=== PATIENT | male | born 1950 | race Caucasian/White ===

== ENCOUNTER 2018-07-06 11:50 | Inpatient (IN) | payer MEDICARE, OTHER ==
[2018-07-06] MEDS ORDERED: Pantoprazole 40 MG VIAL ONE (12:32)
[2018-07-06 12:42] LABS: #Basophils 0.1 thou/uL (0.0-0.2); #Eosinphils 0.2 thou/uL (0.0-0.7); #Lymphocytes 2.1 thou/uL (1.20-3.40); #Monocytes 0.4 thou/uL (0.11-0.59); %Basophils 0.9 % (0.0-1.0); %Lymphocytes 31.5 % (21.0-51.0); %Monocytes 5.8 % (0.0-10.0); %Neutrophils 58.8 % (42.0-75.0); Hemoglobin 13.4 g/dL (14.0-18.0); Mean Corpuscular HGB CONC 33.3 g/dL (32.0-36.0); Mean Corpuscular Hemoglobin 31.8 pg (27.0-31.0); Mean Corpuscular Volume 95.5 fL (78.0-98.0); Platelet Count 215 thou/uL (130-400); RBC Distribution Width 14.9 % (11.5-14.5); Red Blood Cell (RBC) Count 4.21 mill/uL (4.70-6.10); White Blood Cell (WBC) Count 6.8 thou/uL (4.8-10.8)
[2018-07-06 13:09] LABS: ALT (SGPT) 19 U/L (8-55); AST (SGOT) 18 U/L (5-34); Albumin 4.5 g/dL (3.4-4.8); Alkaline Phosphatase 69 U/L (40-150); Anion Gap 14 mmol/L (10-20); BUN (Urea Nitrogen) 17 mg/dL (8.4-25.7); Bilirubin, Total 1.1 mg/dL (0.2-1.2); Calc. Creatinine Clearance 0 mL/min (70-130); Calcium 9.7 mg/dL (7.8-10.44); Carbon Dioxide 27 mmol/L (23-31); Chloride 106 mmol/L (98-107); Estimated GFR-MDRD 83; Globulin 2.9 g/dL (2.4-3.5); Glucose 108 mg/dL (80-115); Potassium 3.6 mmol/L (3.5-5.1); Protein, Total 7.4 g/dL (5.8-8.1); Sodium 143 mmol/L (136-145)
[2018-07-06] MEDS ORDERED: Ondansetron PF 4 MG/2 ML Vial IVP PRN (13:59)
[2018-07-06] MEDS ORDERED: Sodium Chloride 0.9% (PF) 10 ML VIAL FS PRN (14:31)
--- NOTE | 2018-07-06 15:47 | CT ---
FCT abdomen noncontrast CT pelvis noncontrast: 07/06/2018 HISTORY: 67-year-old male with right lower quadrant abdominal pain. Bloody stools. COMPARISON: None FINDINGS: Appendix, pancreas, spleen, adrenals, and liver, are normal, within the limitations of a noncontrast scan. Multiple small and tiny bilateral renal calculi. No hydronephrosis. No ureteral calculus or marga dder calculus. Normal, thin isaacs of the urinary bladder. At the proximal sigmoid colon, one of the d iverticula has thickened, enhancing isaacs. Adjacent to that, there is prominent pericolonic fat stran ding representing edema in the adjacent mesentery. No definite extraluminal gas or abscess is identif ied. No small bowel dilation. Cholecystectomy clips. No abdominal aortic aneurysm. IMPRESSION: 1. Acute proximal sigmoid colonic diverticulitis at the left lower quadrant. 2. Bilateral nephrolithiasis.
[2018-07-06 15:49] VITALS: BMI 26.2
[2018-07-06] MEDS: metroNIDAZOLE 500 MG in Premix Bag 1 BAG IVPB SCH (18:22)
[2018-07-06] MEDS: Pantoprazole 40 MG VIAL IVP SCH (22:21)
--- NOTE | 2018-07-06 23:58 | CON ---
DATE OF CONSULTATION: 07/06/2018 REQUESTING PHYSICIAN: Genevieve Jimenez MD. REASON FOR CONSULTATION: Hematochezia. HISTORY OF PRESENT ILLNESS: Laz Denise is a 67-year-old gentleman, who was transferred here from the [facility] with hematochezia today. He has a history of atrial fibrillation status post ablation and Lariat procedure, so he is only on aspirin. No other anticoagulation. He had prostate cancer surgery in the past and also remote history of hemorrhagic stroke. He has hereditary hemochromatosis and gets therapeutic phlebotomy every couple of weeks under the direction of Dr. Moreno at [facility]. He has no known history of liver disease. No known history of gastrointestinal illness. No prior colonoscopy. Yesterday morning, he had a bowel movement and this was notable for being very dark with some bright red blood accompanying it. This happened another four times throughout the course of yesterday and yesterday evening, one of his stools was essentially mostly red liquid blood. His last bowel movement was this morning and again this was quite dark with a bit of red blood in the stool as well. For the past couple of months, he has been having some increased bowel sounds and just over the past few days he has been having some discomfort localized to the left side of the abdomen, particularly the left lower quadrant. No severe abdominal pain. No nausea or vomiting. His appetite is okay. He has had no fever. No dizziness. Upon presentation, hemoglobin is 13.4. He had a CT of the abdomen and pelvis in the ER prior to going up to the floor and this demonstrates an acute proximal sigmoid diverticulitis with mesenteric stranding. He has no known prior history of diverticulitis. He is hemodynamically stable, otherwise feeling pretty well. REVIEW OF SYSTEMS: Full review of systems including constitutional, head, eyes, ears, nose, throat, GI, , cardiovascular, respiratory, musculoskeletal, neurologic systems is negative except as noted in the HPI. PAST MEDICAL HISTORY: Hereditary hemochromatosis, atrial fibrillation status post ablation procedure and Lariat procedure, hypertension, prostate cancer, prostate cancer surgery, hemorrhagic CVA in 2011, sleep apnea, cholecystectomy, depression. ALLERGIES: NO KNOWN DRUG ALLERGIES. OUTPATIENT MEDICATIONS: 1. Aspirin 81 mg daily. 2. Metoprolol. 3. Amlodipine. 4. Allopurinol. 5. Clonidine. 6. Benazepril. 7. Lasix. 8. Potassium chloride. FAMILY HISTORY: Negative for known gastrointestinal malignancy. SOCIAL HISTORY: No alcohol abuse. PHYSICAL EXAMINATION: VITAL SIGNS: Temperature 98.3, pulse 57, blood pressure 157/93, 97% oxygen saturation on room air. GENERAL: Well-appearing 67-year-old man, sitting up in bed comfortably, in no distress. SKIN: No jaundice. No rashes were palpable. EYES: No scleral icterus. Extraocular movements intact. ENT: Mucous membranes moist. No oral lesions. LYMPH: No submandibular or supraclavicular lymphadenopathy. Thyroid nontender to palpation. HEART: Regular rate and rhythm. LUNGS: Clear to auscultation bilaterally. ABDOMEN: Bowel sounds are present. Nondistended. The abdomen is soft. There is some tenderness to palpation in the left lower quadrant and a little bit in the left upper quadrant as well, but no guarding or rebound tenderness. EXTREMITIES: No peripheral edema. VESSELS: Radial pulses 2+ bilaterally. NEURO: Cranial nerves 2-12 intact bilaterally. No focal deficits. LABORATORY STUDIES: Sodium 143, potassium 3.6, BUN 17, creatinine 0.91. LFTs all normal with total bilirubin 1.1, AST 18, ALT 19, alkaline phosphatase 69, albumin 4.5. Hemoglobin is 13.4, WBC 6.8, platelets 215. IMAGING STUDIES: CT of the abdomen and pelvis demonstrates acute proximal sigmoid diverticulitis with associated mesenteric stranding. There is some bilateral nonobstructing nephrolithiasis. The CT scan is otherwise unremarkable. ASSESSMENT: 1. Acute sigmoid diverticulitis. 2. Hematochezia, secondary to acute sigmoid diverticulitis. PLAN: I discussed with the patient that the CT findings demonstrate acute sigmoid diverticulitis which is uncomplicated. His hematochezia is almost certainly secondary to this acute process. Notably, his hemoglobin is satisfactory at 13.4. I have gone ahead and started him on ciprofloxacin and Flagyl IV. Continue IV antibiotics while inpatient and transition to oral upon hospital discharge to complete a 10 day course. We will not plan on any colonoscopy in the setting of acute diverticulitis. He is going to need a followup colonoscopy at a 6-8 week interval to follow up this episode. We will have him on a full liquid diet tonight. Anticipate if he is doing well tomorrow, the diet can be further advanced. Trend H and H tomorrow as well. Thank you for the consultation. Please call anytime with questions or concerns. Job ID: [id number]
--- NOTE | 2018-07-07 00:30 | HP ---
CHIEF COMPLAINT: Dark stools. HISTORY OF PRESENT ILLNESS: The patient is a 67-year-old male with a history of AFib, status post Lariat procedure, is currently just on aspirin, who presents to the hospital with complaints of hematochezia and melena. The patient stated that he had, I believe on Sunday, one episode of dark black stool followed by bright blood when he tried to clean himself. At this time, the patient had a normal follow up with his office support associate and the office support associate recommended him to come into the ER if his dark stools or bright blood per rectum continued. The patient, at this time, from yesterday and today, had about 3 to 4 bouts of stools, which were dark in nature, followed by some bright blood when he tried to clean himself. The patient denied any fevers or chills, or any nausea or vomiting. The patient did complain of some pain to his left lower quadrant. PAST MEDICAL HISTORY: 1. History of atrial fibrillation. He had Lariat procedure. 2. Hemochromatosis. 3. Arrhythmias. 4. Hypertension. 5. Also, he has had a history of prostate cancer, status post prostatectomy. 6. The patient also has a history of hemochromatosis and he normally gets phlebotomy. PAST SURGICAL HISTORY: Prostatectomy. He also had the Lariat procedure. SOCIAL HISTORY: He denies any alcohol use or drug use. He is a full code. Lives with his . FAMILY HISTORY: Family history of some heart disease. ALLERGIES: NO KNOWN DRUG ALLERGIES. MEDICATIONS: 1. Aspirin 81 mg daily. 2. Metoprolol 25 mg daily b.i.d. 3. Allopurinol 100 mg daily. 4. Amlodipine 5 mg daily. 5. Benazepril 40 mg daily. 6. Clonidine 0.2 mg daily. 7. Lasix 20 mg daily. 8. Potassium 10 mEq daily. PHYSICAL EXAMINATION: VITAL SIGNS: Temperature of 98.5, respirations 15, pulse of 55, 165/93, 98% on room air. GENERAL: The patient is awake, alert, and oriented x3. Does not appear in distress. CV: S1, S2 present. No murmurs, rubs, or gallops. HEENT: Normocephalic, atraumatic. No lymphadenopathy noted. Pupils are equal and reactive to light. LUNGS: Clear to auscultation. No rhonchi or wheezes noted. ABDOMEN: Soft. He has tenderness on his left lower quadrant on some mild to deep palpation. EXTREMITY: No edema. Pedal pulses are present x2. NEUROVASCULAR: No focal deficits noted. SKIN: No cuts, lesions, or bruises noted. LABORATORY RESULTS: As of the following; 13.4, hematocrit of 40.3, platelets of 215. Chemistry; sodium of 143, potassium of 3.6, BUN of 17, creatinine 0.91. AST 18, ALT 19. ASSESSMENT AND PLAN: The patient is a very pleasant 67-year-old male, who presents to the hospital with complaints of dark stools and also followed by hematochezia. 1. Lower gastrointestinal bleed. The patient has a combination of both hematochezia and melena. However, given the fact that he has left lower quadrant pain, I will go ahead and do a CT abdomen and pelvis to rule out any diverticulitis or diverticulosis. The patient has never had a colonoscopy. I also would consult Gastroenterology, check his H and H every 6 hours, put the patient n.p.o. for now until he is evaluated by Gastroenterology. 2. History of atrial fibrillation, currently on aspirin. He is status post Lariat procedure. He does not require any anticoagulation. We will continue to monitor. 3. History of hypertension. We will hold off on his blood pressure medications for now given his bleeding status. We will also type and screen him just in case if we need to transfuse this patient. Job ID: [id number]
[2018-07-07] MEDS: metroNIDAZOLE 500 MG in Premix Bag 1 BAG IVPB SCH ×3 (01:28→19:01)
[2018-07-07] MEDS ORDERED: Acetaminophen 325 MG TAB PO PRN (01:57)
[2018-07-07 06:04] LABS: #Eosinphils 0.2 thou/uL (0.0-0.7); #Lymphocytes 1.8 thou/uL (1.20-3.40); #Monocytes 0.5 thou/uL (0.11-0.59); #Neutrophils 4.1 thou/uL (1.40-6.50); %Basophils 0.3 % (0.0-1.0); %Eosinophils 2.9 % (0.0-10.0); %Lymphocytes 27.1 % (21.0-51.0); %Monocytes 7.6 % (0.0-10.0); %Neutrophils 62.2 % (42.0-75.0); Hemoglobin 11.3 g/dL (14.0-18.0); Mean Corpuscular HGB CONC 33.1 g/dL (32.0-36.0); Mean Corpuscular Hemoglobin 31.2 pg (27.0-31.0); Mean Corpuscular Volume 94.2 fL (78.0-98.0); Mean Platelet Volume 7.1 fL (7.4-10.4); Platelet Count 200 thou/uL (130-400); RBC Distribution Width 14.7 % (11.5-14.5); Red Blood Cell (RBC) Count 3.64 mill/uL (4.70-6.10); White Blood Cell (WBC) Count 6.5 thou/uL (4.8-10.8)
[2018-07-07 06:22] LABS: Anion Gap 12 mmol/L (10-20); BUN (Urea Nitrogen) 15 mg/dL (8.4-25.7); Calc. Creatinine Clearance 112 mL/min (70-130); Calcium 9.2 mg/dL (7.8-10.44); Carbon Dioxide 26 mmol/L (23-31); Chloride 108 mmol/L (98-107); Estimated GFR-MDRD 88; Glucose 94 mg/dL (80-115); Potassium 3.8 mmol/L (3.5-5.1); Sodium 142 mmol/L (136-145)
[2018-07-07] MEDS: Pantoprazole 40 MG VIAL IVP SCH ×2 (10:40→23:01)
--- NOTE | 2018-07-07 13:12 | PDOC.PN ---
- Subjective Encounter Start Date: 07/07/18 Encounter Start Time: 13:10 Subjective: admitted with abdominal cramps associated with melena and hematochezia. -: Started on antibiotic for acute diverticulitis. Feeling better. No fever. -: bloody stool is subsiding - Objective Resuscitation Status - Order Detail: 07/06/18 13:59 Resuscitation Status Routine Resuscitation Status: FULL: Full Resuscitation Vital Signs & Weight: Vital Signs (12 hours) Temp Pulse Resp BP Pulse Ox 07/07/18 11:42 98.1 F 71 20 112/77 95 07/07/18 07:55 98.4 F 62 20 111/79 97 07/07/18 04:00 98.6 F 50 L 18 144/89 H 98 Weight Weight 215 lb 4.8 oz I&O: 07/06/18 07/07/18 07/08/18 06:59 06:59 06:59 Intake Total 1050 Balance 1050 Result Diagrams: 07/07/18 05:16 07/07/18 05:16 Phys Exam - Physical Examination Constitutional: NAD HEENT: PERRLA, moist MMs Neck: no JVD, supple Respiratory: no wheezing, no rhonchi, clear to auscultation bilateral Cardiovascular: RRR Gastrointestinal: soft, no distention, positive bowel sounds left lower quadrant tenderness Musculoskeletal: no edema Neurological: non-focal, moves all 4 limbs Psychiatric: A&O x 3 Dx/Plan (1) Acute blood loss anemia Code(s): D62 - ACUTE POSTHEMORRHAGIC ANEMIA Status: Acute (2) Acute lower GI bleeding Code(s): K92.2 - GASTROINTESTINAL HEMORRHAGE, UNSPECIFIED Status: Acute (3) Acute diverticulitis Code(s): K57.92 - DVTRCLI OF INTEST, PART UNSP, W/O PERF OR ABSCESS W/O BLEED Status: Acute (4) Atrial fibrillation Code(s): I48.91 - UNSPECIFIED ATRIAL FIBRILLATION Status: Acute (5) Hemochromatosis Code(s): E83.119 - HEMOCHROMATOSIS, UNSPECIFIED Status: Acute (6) History of prostate cancer Code(s): Z85.46 - PERSONAL HISTORY OF MALIGNANT NEOPLASM OF PROSTATE Status: Acute (7) Bilateral nephrolithiasis Code(s): N20.0 - CALCULUS OF KIDNEY Status: Acute - Plan Continue IV antibiotics -: monitor H/H. -: Advance diet -: Restart metoprol while holding other antihypertensives. * .
--- NOTE | 2018-07-07 14:28 | PRG ---
DATE OF SERVICE: 07/07/2018 SUBJECTIVE: Mr. Denise is feeling pretty well today. He passed another bloody bowel movement about 7 a.m., but has had no bowel movement since that time. Abdominal discomfort has essentially resolved and he is feeling energetic. Hemoglobin did drop a couple of points overnight down to 11.3. He has remained hemodynamically stable, tolerating his diet. OBJECTIVE: VITAL SIGNS: Temperature 98.1, pulse 71, blood pressure 112/77, and 95% oxygen saturation on room air. GENERAL: No acute distress. HEART: Regular rate and rhythm. LUNGS: Clear to auscultation bilaterally. ABDOMEN: Bowel sounds present. Soft and nontender to palpation. EXTREMITIES: No peripheral edema. LABORATORY STUDIES: Hemoglobin declined down to 11.3, WBC 6.5, platelets 200. Sodium 142, potassium 3.8, BUN 15, creatinine 0.86. ASSESSMENT AND PLAN: 1. Acute sigmoid diverticulitis with hemorrhage. 2. Hematochezia, appears secondary to acute sigmoid diverticulitis. 3. Acute blood loss anemia. Mr. Denise's blood count has dropped a couple of points, as expected. It is unclear whether the active hemorrhage is really resolving or not. Continue with close observation. Monitor H and H tomorrow. Continue antibiotics. Still recommend against proceeding with any colonoscopy in the acute setting of sigmoid diverticulitis, but we will plan on this at a 6 to 8-week interval following resolution of this episode. GI can continue to follow along. Continue with his diet. Job ID: [id number]
[2018-07-07] MEDS ORDERED: metroNIDAZOLE 500 MG TAB PO SCH (22:15)
[2018-07-08] MEDS ORDERED: Cipro 250 MG TAB PO SCH (06:00)
[2018-07-08 06:01] LABS: #Basophils 0.1 thou/uL (0.0-0.2); #Eosinphils 0.2 thou/uL (0.0-0.7); #Lymphocytes 1.7 thou/uL (1.20-3.40); #Monocytes 0.7 thou/uL (0.11-0.59); #Neutrophils 5.6 thou/uL (1.40-6.50); %Basophils 0.9 % (0.0-1.0); %Eosinophils 2.4 % (0.0-10.0); %Lymphocytes 20.7 % (21.0-51.0); %Monocytes 8.5 % (0.0-10.0); %Neutrophils 67.4 % (42.0-75.0); Hemoglobin 10.8 g/dL (14.0-18.0); Mean Corpuscular Hemoglobin 31.2 pg (27.0-31.0); Mean Corpuscular Volume 94.5 fL (78.0-98.0); Mean Platelet Volume 6.9 fL (7.4-10.4); Platelet Count 198 thou/uL (130-400); RBC Distribution Width 14.6 % (11.5-14.5); Red Blood Cell (RBC) Count 3.46 mill/uL (4.70-6.10); White Blood Cell (WBC) Count 8.3 thou/uL (4.8-10.8)
--- NOTE | 2018-07-08 08:25 | PRG ---
DATE OF SERVICE: 07/08/2018 SUBJECTIVE: Mr. Denise is feeling well this morning. His last bowel movement was 3 p.m. yesterday afternoon and says this was clearing up with only a small tinge of blood. He has no abdominal pain. His hemoglobin has stabilized currently at 10.8 this morning. OBJECTIVE: VITAL SIGNS: Temperature 98.2, pulse 52, blood pressure 125/87, and 98% oxygen saturation on room air. GENERAL: No acute distress. HEART: Regular rate and rhythm. LUNGS: Clear to auscultation bilaterally. ABDOMEN: Soft, nontender to palpation. EXTREMITIES: No peripheral edema. LABORATORY STUDIES: Hemoglobin 10.8, WBC 8.3, platelets 198. Sodium 142, potassium 3.8, BUN 15, creatinine 0.86. ASSESSMENT: 1. Acute sigmoid diverticulitis with hemorrhage, clinically improved. 2. Acute blood loss anemia, stabilized. It appears that the patient's bleeding has resolved. He is otherwise minimally symptomatic with his diverticulitis. From a GI standpoint, I think he could be discharged from the hospital on oral antibiotics to complete a 10 day course. PLAN: We will plan to see him back in my clinic in 3 to 4 weeks for followup. At that point, we will be likely scheduling a followup colonoscopy as well. GI will sign off, but please call anytime with questions or concerns. Job ID: [id number]
[2018-07-08] MEDS ORDERED: metroNIDAZOLE 500 MG TAB PO SCH (09:00)
[2018-07-08] MEDS ORDERED: Pantoprazole 40 MG GRANULES PACKET PO SCH (09:00)
--- NOTE | 2018-07-08 10:02 | DIS ---
DATE OF ADMISSION: 07/06/2018 DATE OF DISCHARGE: 07/08/2018 DISCHARGE DIAGNOSES: 1. Acute lower gastrointestinal bleeding. 2. Acute blood loss anemia. 3. Acute sigmoid diverticulitis. 4. Paroxysmal atrial fibrillation. 5. Hemochromatosis. 6. Bilateral nephrolithiasis. 7. Hypertension. CONSULTS: Gastroenterology. HOSPITAL COURSE: A 67-year-old male with past medical history significant for hemochromatosis requiring phlebotomy every 2 weeks; prior CVA, on aspirin, who presented with abdominal cramps associated with melena and bloody stool as well as generalized weakness and ill feeling. CT scan showed sigmoid diverticulitis. The patient was started on IV fluid and antibiotics with improvement in symptoms. Diet was restarted, and this was well tolerated and advanced to regular. GI saw the patient and recommended interval colonoscopy when acute inflammation has subsided. Of note, the patient had soft blood pressure necessitating discontinuation of all antihypertensives. BP improved, and the patient was restarted on some of his usual antihypertensives while most of them were held at discharge. The patient also was found to have nephrolithiasis on CT scan. This was said to be multiple in both kidneys. The patient was advised to follow up with a cocoa press operator for further evaluation and treatment. PHYSICAL EXAMINATION: VITAL SIGNS: Temperature 98.3, pulse 55, respiratory rate 16, SpO2 of 96% on room air, blood pressure 146/84. GENERAL: Healthy-looking male, in no obvious distress. Afebrile. Anicteric. Acyanotic. HEENT: Normocephalic and atraumatic. Pupils are equal and reacting to light. CARDIOVASCULAR: Regular rhythm and rate with normal heart sounds 1 and 2. RESPIRATORY: Good air entry bilaterally with no obvious crackle or rhonchi. GI: Abdomen is full, soft with mild left lower quadrant tenderness. EXTREMITIES: Grossly normal looking, atraumatic with no edema or erythema. NEUROLOGIC: Conscious, alert, oriented x3 with appropriate mental status. Cranial nerves 2 through 12 are intact. The patient moves all extremities. DISCHARGE MEDICATIONS: 1. Allopurinol 100 mg b.i.d. 2. Amlodipine 5 mg p.o. daily. 3. Aspirin 81 mg p.o. daily. 4. Metoprolol succinate 25 mg p.o. daily at bedtime. 5. Tamsulosin 0.4 mg p.o. daily. 6. Ciprofloxacin 500 mg p.o. b.i.d. for 10 days. 7. Metronidazole 500 mg t.i.d. for 10 days. Of note, clonidine, Lasix, potassium chloride, and benazepril were held at discharge. TIME SPENT: This discharge took 35 minutes. Job ID: [id number]
[2018-07-08 11:40] VITALS: BP 129/100; TEMP 98.4
--- NOTE | 2018-07-08 20:13 | CON ---
DATE OF CONSULTATION: 07/08/2018 INDICATION FOR CONSULTATION: This is a 67-year-old patient with chronic atrial fibrillation, who has undergone a LARIAT procedure in the past, who has atrial fibrillation, inability to be able to take anticoagulation. He had a hemorrhagic stroke in 2012, which required him to come off his anticoagulation and to have the LARIAT procedure performed. They have been followed by several years. He has had a history of chronic atrial fibrillation, has bradycardia. He has had several pauses. He was seen in the office on Sunday just one day prior to his admission here, and has been complained of some GI bleeding and also has been having some pauses; even in the office, has pauses up to 2.6 to 2.7 seconds, but he denies any symptoms or complaints. He has had this bradycardia for quite some time. Here in the hospital, he has also had further bradycardia and pauses up to 3.38 seconds, but still continues to be completely asymptomatic. We have discussed possible pacemaker insertion in the past, but at this time, we have just monitored him since he is completely asymptomatic. He has had no syncope or presyncope. He presented to the hospital after having a repeat GI bleed and was felt to have diverticulitis. He is scheduled to be seen by the material yard clerk in the near future. I will also apply a 24-hour event monitor to him for 3 to 5 days to see whether or not he continues to have significant bradycardia or pauses. His most recent echocardiogram showed an ejection fraction of 50% to 55% with mild mitral and tricuspid valve regurgitation. He does have left and right atrial dilatation. He has continued to have the bradycardia throughout the last several office visits. PAST MEDICAL HISTORY: Significant for prostate cancer, intracerebral hemorrhage , obstructive sleep apnea, vertigo, diabetes, hypertension, atrial fibrillation. He has had an echocardiogram, which is just noted above. His stress test was in July of 2017, which showed no evidence of reversible ischemia. PAST SURGICAL HISTORY: He has had a cholecystectomy. He has had a left atrial appendage closure with LARIAT device in 2012. He has had a uvulectomy. He has had prostate removal in 2018. FAMILY HISTORY: Noncontributory. SOCIAL HISTORY: He does not smoke. He drinks 1 to 2 cups of coffee a day. No significant alcohol use. ALLERGIES: NONE. MEDICATIONS PRIOR TO ADMISSION: Include: 1. Metoprolol 25 mg once a day. 2. Benazepril 40 mg a day. 3. Clonidine 0.2 mg as needed b.i.d. 4. Amlodipine 5 mg daily. 5. Aspirin 81 mg a day. 6. Furosemide 20 mg a day. 7. Potassium 10 mEq twice a day. 8. Allopurinol 100 mg twice a day. REVIEW OF SYSTEMS: A 12-point review of systems is unremarkable except for the GI blood loss. He continues to be very active. He walks on a routine basis without symptoms. At this time, we will continue to hold his clonidine and may consider lowering his metoprolol to just a half a tablet a day. PHYSICAL EXAMINATION: GENERAL: Reveals a very pleasant, well-developed, well-nourished gentleman, who is in no acute distress. VITAL SIGNS: Blood pressure is 146/84, heart rate is in the 50s and has atrial fibrillation, respiratory rate is 16. He is afebrile. HEENT: Unremarkable. NECK: Carotid pulses are present. There were no bruits. CHEST: Clear to auscultation without rales, rhonchi, or wheezing. CARDIOVASCULAR: Reveals an irregular rhythm, bradycardic at times. He has a very soft systolic murmur at the apex. ABDOMEN: Soft, flat, and nontender. Positive bowel sounds are present. EXTREMITIES: Show no clubbing, cyanosis, or edema. NEUROLOGIC: He appears to be fully intact. He has normal strength and normal tone. He is able to ambulate without difficulties. SKIN: Warm and dry. IMPRESSION: 1. Gastrointestinal bleed from most likely diverticulitis. He has been treated with antibiotics and the bleeding has resolved. He is to see material yard clerk in the near future for colonoscopy and further evaluation. 2. Bradycardia with underlying atrial fibrillation. At times, he did have some rapid heart rate. 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 We will monitor him with an event monitor for the next 3 to 5 days. If he continues to have severe bradycardia and if the overall heart rate is very low, then he may need to undergo pacemaker insertion, but at this time, he remains completely asymptomatic. 3. For his other medical problems, please refer to the notes already dictated by the Primary Care Service for his diabetes, hypertension, obstructive sleep apnea, and history of prostate cancer. I will see him back in the office within the next 1 to 2 weeks. Unless he has any problems in the interim, then he will inform me, we will see him sooner. Job ID: [id number] [id number]
== END 2018-07-08 14:59 | disposition home or self-care (01) | DRG 378 ==
LOC: ERS 11:50 → 2SE 15:42
PROVIDERS: ADMIT Internal Medicine; ATTEND Internal Medicine
DX: K57.93 Diverticulitis of intestine, part unspecified, without perforation or abscess with bleeding (principal); D62 Acute posthemorrhagic anemia; E83.119 Hemochromatosis, unspecified; Z85.46 Personal history of malignant neoplasm of prostate; N20.0 Calculus of kidney; I48.0 Paroxysmal atrial fibrillation
CPT/HCPCS: 36415; 74176; 80048; 80053; 82274; 85025; 86850; 86900; 86901; 93005; 96374; C9113; J0744